=== PATIENT | male | born 1940 | race Caucasian/White ===

== ENCOUNTER 2022-12-10 14:51 | Inpatient (IN) | payer OTHER, MEDICAID ==
[~2022-12-10] VITALS: Ht 154.9 cm; Wt 49.9 kg
--- NOTE | 2022-12-10 14:51 | NUR ---
PT PLACED IN BED 10 BY [facility]
[2022-12-10 14:58] VITALS: BP 114/76
[2022-12-10] MEDS ORDERED: NACL 0.9% 1,000 ML IV ONE (15:00)
[2022-12-10] MEDS ORDERED: VANCOMYCIN 1,000 MG in DEXTROSE 5% 250 ML IV ONE (15:05)
[2022-12-10] MEDS ORDERED: MEROPENEM 1,000 MG in NACL 0.9% 50 ML IV ONE (15:05)
[2022-12-10] MEDS ORDERED: MEROPENEM 1,000 MG VIAL IV ONE (15:08)
[2022-12-10] MEDS ORDERED: VANCOMYCIN 1,000 MG VIAL ONE (16:39)
[2022-12-10 16:47] LABS: BASOPHILS % (AUTO) 0.3 % (0.0-2.0); EOSINOPHILS # (AUTO) 0.1 K/uL (0-0.4); EOSINOPHILS % (AUTO) 1.8 % (0.0-4.0); HEMATOCRIT 24.7 % (36-52); HEMOGLOBIN 7.7 g/dL (12.0-18.0); LYMPHOCYTES # (AUTO) 0.7 K/uL (2.0-11.5); LYMPHOCYTES % (AUTO) 11.2 % (20.5-51.1); MEAN CORPUSCULAR HEMOGLOBIN 28 pg (27-31); MEAN CORPUSCULAR HGB CONC 31 g/dL (33-37); MEAN CORPUSCULAR VOLUME 88.7 fL (80-94); MONOCYTES # (AUTO) 0.7 K/uL (0.8-1.0); NEUTROPHILS # (AUTO) 4.7 K/uL (1.8-7.7); NEUTROPHILS % (AUTO) 75.7 % (42.2-75.2); PLATELET COUNT (AUTO) 111 K/uL (140-450); RED BLOOD CELL COUNT(AUTO) 2.79 MIL/uL (4.20-6.10); RED CELL DISTRIBUTION WIDTH 16.2 % (11.6-13.7); WHITE BLOOD COUNT (AUTO) 6.2 K/uL (4.8-10.8)
[2022-12-10 17:02] LABS: ALBUMIN 3.1 g/dL (3.4-5.0); ANION GAP 3.6 (8-16); ASPARTATE AMINOTRANSFERASE 34 U/L (15-37); CHLORIDE 106 mmol/L (98-107); CREATININE 0.9 mg/dL (0.6-1.3); GLUCOSE 115 mg/dL (74-106); POTASSIUM 4.6 mmol/L (3.5-5.1); SODIUM SERUM 144 mmol/L (136-145); TOTAL BILIRUBIN 0.3 mg/dL (0.0-1.0); UREA NITROGEN, BLOOD 16 mg/dL (7-18)
[2022-12-10 17:17] LABS: PROTHROMBIN TIME 10.8 secs (10.8-13.4)
[2022-12-10] MEDS ORDERED: ACETAMINOPHEN 325 MG TAB PO PRN (18:35)
[2022-12-10] MEDS ORDERED: methylPREDNISolone SS 125 MG in WATER STERILE 2 ML IM ONE (18:35)
[2022-12-10] MEDS ORDERED: DOCUSATE SODIUM 100 MG GELCAP PO PRN (18:35)
[2022-12-10] MEDS ORDERED: MORPHINE SULFATE 2 MG/ML SYR IVP PRN (18:35)
[2022-12-10] MEDS ORDERED: MAG SULF 2000 MG/WATER PREMIX 50 ML IV PRN (18:35)
[2022-12-10] MEDS ORDERED: MAG SULF 2000 MG/WATER PREMIX 50 ML IV ONE (18:35)
[2022-12-10] MEDS ORDERED: POTASSIUM CHLORIDE 10 MEQ TABER PO PRN (18:35)
[2022-12-10] MEDS ORDERED: LORazepam 2 MG/ML VIAL IVP PRN (18:35)
[2022-12-10] MEDS ORDERED: ONDANSETRON 4 MG/2 ML VIAL IVP PRN (18:35)
[2022-12-10] MEDS ORDERED: methylPREDNISolone SS 125 MG/2 ML VIAL ONE (19:03)
[2022-12-10] MEDS ORDERED: WATER STERILE 10 ML MC ONE (19:03)
[2022-12-10 19:07] VITALS: BP 98/59
--- NOTE | 2022-12-10 19:07 | NUR ---
INCREASED PT IPAP FROM 10 TO 14 AND EPAP FROM 5 TO 6 DUE TO LOW VOLUMES. PT VOLUMES HAVE IMPROVED AND PT HAS ADEQUATE CHEST RISE. WILL CONTINUE TO MONITOR.
--- NOTE | 2022-12-10 19:30 | NUR ---
RECEIVED IN BED 10 ON BIPAP, NON VERBAL. MAG RIDER COMPLETED. PT DOES RESPOND TO TACTILE STIMULATION. REPOSITIONED SLIGHTLY FOR COMFORT, WARM BLANKET GIVEN
--- NOTE | 2022-12-10 20:32 | NUR ---
DR SALAZAR HERE REXAMINING PT
[2022-12-10] MEDS ORDERED: FINA5TAB1 PO (20:51)
[2022-12-10] MEDS ORDERED: ATOR40TA PO (20:51)
[2022-12-10] MEDS ORDERED: ATI.5 PO (20:51)
[2022-12-10] MEDS ORDERED: MIRT-91 PO (20:51)
[2022-12-10] MEDS ORDERED: KEP500 PO (20:51)
[2022-12-10] MEDS ORDERED: methylPREDNISolone SS 40 MG in WATER STERILE 1 ML IV SCH (21:00)
[2022-12-10] MEDS ORDERED: methylPREDNISolone SS 40 MG/ML VIAL IVP SCH (21:00)
--- NOTE | 2022-12-10 21:57 | NUR ---
REPORT CALLED TO ANTIONE MALAVE. PT IS IN CT RIGHT NOW AND WILL BE TRANSPORTED TO 110B IMMEDIATELY FOLLOWING SCAN
--- NOTE | 2022-12-10 22:00 | NUR ---
RT ASSISTED WITH TRANSPORTING PT FROM ER, TO CT, AND BACK TO ER. NO DISTRESS NOTED, SPO2 IS 100%, BIPAP MACHINE PLUGGED INTO RED OUTLET.
--- NOTE | 2022-12-10 22:50 | NUR ---
RT ASSISTED WITH TRANSPORTING PT FROM ER TO ROOM 110B. NO DISTRESS INDICATED PT SPO2 97%, BIPAP PLUGGED INTO RED OUTLET, AMBU BAG BEDSIDE.
--- NOTE | 2022-12-10 22:55 | NUR ---
PATIENT WAS [facility] FROM ER VIA GURNEY WITH BIPAP ON. CC: ALOC DX: PNA. BREATHING NORMAL WITH SYMMETRICAL RISE AND FALL OF THE CHEST. IV ACCESS TO LEFT FOREARM 22 GAUGE INTACT AND PATENT. ALL SAFETY PRECAUTIONS ARE IN PLACE. SKIN WARM AND DRY TO THE TOUCH. SKIN INTACT. MRSA SCREENING DONE. CALL LIGHT ON EASY REACH.
[2022-12-10 23:20] VITALS: BP 101/53
[2022-12-10] MEDS ORDERED: PIPERACILLIN/TAZOBACTAM 3.375 GM VIAL IV ONE (23:34)
[2022-12-10] MEDS: PIPERACILLIN/TAZOBACTAM 3.375 GM in DEXTROSE 5% 50 ML IV SCH (23:50)
[2022-12-11] VITALS (8 sets, daily range): BP systolic 101–143; BP diastolic 58–80
[2022-12-11] MEDS ORDERED: methylPREDNISolone SS 40 MG in WATER STERILE 1 ML IV SCH ×2
[2022-12-11] MEDS: methylPREDNISolone SS 40 MG/ML VIAL IVP SCH ×3 (00:13→16:00)
[2022-12-11 04:53] LABS: APPEARANCE,URINE CLEAR (CLEAR); BILIRUBIN,URINE NEGATIVE (NEGATIVE); BLOOD, URINE 3+ (NEGATIVE); COLOR,URINE YELLOW (YELLOW); LEUKOCYTE ESTERASE ,URINE NEGATIVE (NEGATIVE); NITRITE, URINE NEGATIVE (NEGATIVE); PH,URINE 6.5 (5.0-9.0); UGLUCOSE NEGATIVE (NEGATIVE)
[2022-12-11] MEDS ORDERED: PIPERACILLIN/TAZOBACTAM 3.375 GM VIAL IV ONE (05:06)
[2022-12-11] MEDS: PIPERACILLIN/TAZOBACTAM 3.375 GM in DEXTROSE 5% 50 ML IV SCH ×3 (05:12→20:54)
--- NOTE | 2022-12-11 05:12 | NUR ---
ZOSYN ADMINISTERED ORDERED.
[2022-12-11 05:13] LABS: RBC,URINE 80-100 /HPF (0-5)
--- NOTE | 2022-12-11 07:30 | NUR ---
ENDORSED TO DAY SHIFT NURSE FOR CONTINUITY OF CARE. PATIENT ON BIPAP.
[2022-12-11] MEDS: FINASTERIDE 5 MG TAB PO SCH (09:00)
[2022-12-11] MEDS ORDERED: levETIRAcetam 500 MG TAB PO SCH (09:00)
--- NOTE | 2022-12-11 13:10 | NUR ---
PT PLACED ON 3LNC SATING 94% HR 68 NO DISTRESS NOTED. PT WAS PLACED ON NC DUE TO NOT KEEPING BIPAP ON AND CONTINUING TO TAKE IT OFF. WILL CONTINUE TO MONITOR.
--- NOTE | 2022-12-11 14:00 | NUR ---
HELP BREATHING TX DUE TO ELEVATED HR RN AND CHARGE AWARE MONITORING PT CLOSELY.
[2022-12-11 14:03] LABS: MONOCYTES # (AUTO) 0.1 K/uL (0.8-1.0); NEUTROPHILS # (AUTO) 1.4 K/uL (1.8-7.7)
[2022-12-11 14:10] LABS: ANION GAP 8.6 (8-16); BASOPHILS % (AUTO) 0.1 % (0.0-2.0); CARBON DIOXIDE 38.1 mmol/L (21-32); CHLORIDE 106 mmol/L (98-107); CREATININE 0.9 mg/dL (0.6-1.3); EOSINOPHILS % (AUTO) 0.1 % (0.0-4.0); GLUCOSE 124 mg/dL (74-106); HEMATOCRIT 25.1 % (36-52); LYMPHOCYTES # (AUTO) 0.4 K/uL (2.0-11.5); LYMPHOCYTES % (AUTO) 22.5 % (20.5-51.1); MEAN CORPUSCULAR HEMOGLOBIN 28 pg (27-31); MEAN CORPUSCULAR HGB CONC 32 g/dL (33-37); MEAN CORPUSCULAR VOLUME 87.4 fL (80-94); MONOCYTES % (AUTO) 7.2 % (1.7-9.3); NEUTROPHILS % (AUTO) 70.1 % (42.2-75.2); PLATELET COUNT (AUTO) 117 K/uL (140-450); POTASSIUM 4.7 mmol/L (3.5-5.1); RED BLOOD CELL COUNT(AUTO) 2.87 MIL/uL (4.20-6.10); RED CELL DISTRIBUTION WIDTH 16.1 % (11.6-13.7); SODIUM SERUM 148 mmol/L (136-145); UREA NITROGEN, BLOOD 18 mg/dL (7-18)
--- NOTE | 2022-12-11 15:10 | NUR ---
RN CALLED STATED PT WAS DESATING IN THE HIGH 70S AND NEEDED RT STAT. RT ASSESSED PT HR ON PULSE OX WAS READING 35 AND SPO2 805 ON 5L NC. @ 1517 A RAPID RESPONSE CALLED. NRM WAS PLACED ON PT TO INCREASE SATURATIONS. PTS SATS INCREASED BUT WOB WAS INCREASED WITH LABORED BREATHING. RN STATED ATIVAN WAS GIVEN ABOUT A HOUR PRIOR. ER NURSE AND HOUSE SUP STATED COULD BE CAUSE DECREASE OF RESP DRIVE. PT SATURATIONS CAME UP TO 89% AND HR WITHIN NORMAL LIMITS. PT MEDS WERE SWITCHED PER DR AND PT IS NOW TOLERATING HFNC 15 24%. PT WOB DECREASED AND THERE IS NO DISTRESS AT THIS TIME OF 1608. WILL CONTINUE TO MONITOR.
[2022-12-11] MEDS: levETIRAcetam 500 MG in NACL 0.9% 100 ML IV SCH (15:56)
--- NOTE | 2022-12-11 19:50 | NUR ---
RECEIVED PATIENT WITH BILATERAL SOFT WRIST RESTRAINTS. BEDBOUND. ON HIGH FLOW AT 15L. NO S/S OF RESPIRATORY DISTRESS. RESPIRATION EVEN UNLABORED. ALL SAFETY MEASURES ARE IN PLACE. BED WHEELS LOCKED. SKIN WARM DRY TO THE TOUCH. CALL LIGHT WITHIN REACH. WILL CONTINUE TO MONITOR PT.
--- NOTE | 2022-12-11 19:53 | NUR ---
0800: RECEIVED PT FROM ANANDA TALBOT. PT RESTING IN BED EYES CLOSED. NO GUARDING OR GRIMACING. NO ACUTE DISTRESS NOTED AT THIS TIME. [id number].
--- NOTE | 2022-12-11 19:54 | NUR ---
1950: REPORTED OFF TO ANANDA TALBOT. PT RESTING IN BED. NO GUARDING OR GRIMACING . NO ACUTE DISTRESS NOTED AT THIS TIME. [id number].
[2022-12-11] MEDS: ATORVASTATIN 20 MG TAB PO SCH (20:54)
[2022-12-11] MEDS: ZOLPIDEM 10 MG TAB PO PRN (20:54)
--- NOTE | 2022-12-11 20:54 | NUR ---
ADMINISTERED SCHEDULED DUE MEDICATIONS. TOLERATED WELL.
[2022-12-12] VITALS (8 sets, daily range): BP systolic 119–141; BP diastolic 62–93
[2022-12-12] MEDS: levETIRAcetam 500 MG in NACL 0.9% 100 ML IV SCH ×2 (02:11→15:29)
[2022-12-12] MEDS: PIPERACILLIN/TAZOBACTAM 3.375 GM in DEXTROSE 5% 50 ML IV SCH ×3 (04:32→20:55)
--- NOTE | 2022-12-12 06:43 | NUR ---
PATIENT HAD EPISODES OF PULLING OUT HIS O2. PUT BACK IN. REMINDED PATIENT NOT TO PULL IT OUT. PATIENT IS CONFUSED
--- NOTE | 2022-12-12 06:50 | NUR ---
WILL ENDORSE PATIENT TO AM SHIFT FOR CONTINUITY OF CARE.
--- NOTE | 2022-12-12 07:06 | NUR ---
receive the patinet from the senior cobol developer rn in rm 110B aox1 with bilateral wrist restraints . with admitting diagnosis of pneumonia . will continue to monitor
--- NOTE | 2022-12-12 07:35 | NUR ---
RECEIVED ON A VAPOTHERM HIGH FLOW NASAL CANNULA WITH COMPRESSOR ON PLUGGED INTO RED OUTLET TOLERATING WELL WITHOUT ADVERSE REACTIONS NOTED ; HHN PRN THERAPY GIVEN NOTED; POST HHN THERAPY TITRATED FIO2 TO 35% LIFT ELECTRICIAN TO MONITOR; JORDAN/RN NOTIFIED
[2022-12-12] MEDS: ALBUTEROL 0.083% 2.5 MG/3 ML NEBU INH PRN ×2 (07:38→15:44)
--- NOTE | 2022-12-12 08:05 | NUR ---
SATURATION 99% ON FIO2 OF 35% VIA VAPOTHERM HIH FLOW NASAL CANNULA; TITRATED FIO2 TO 30% PROFESSOR OF SPECIAL EDUCATION TO MONITOR; JORDAN/'RN NOTIFIED
--- NOTE | 2022-12-12 08:50 | NUR ---
SATURATION 99% ON FIO2 OF 30% VIA VAPOTHERM HIGH FLOW NASAL CANNULA; PROJECT PORTFOLIO ANALYST TO TITRATE FIO2 TOLERATED; JORDAN/ANTIONE NOTIFIED Addendum: 12/12/22 at 0954 by Kiran Sow RT TITRATED FIO2 TO 28%
--- NOTE | 2022-12-12 09:02 | NUR ---
SATURATION 99% ON FIO2 OF 28% VIA VAPOTHERM HIGH FLOW NASAL CANNULA; CHANGED OXYGEN DEVICE TO A NASAL CANNULA AT 2 LPM; JORDAN/RN NOTIFIED
[2022-12-12] MEDS: methylPREDNISolone SS 40 MG/ML VIAL IVP SCH ×3 (09:16→15:36)
[2022-12-12] MEDS: FINASTERIDE 5 MG TAB PO SCH (09:16)
--- NOTE | 2022-12-12 09:25 | NUR ---
PATIENT HAS BEEN SCREENED AND CATEGORIZED HIGH NUTRITION RISK. PATIENT WILL BE SEEN WITHIN 1-2 DAYS OF ADMISSION. 12/10/22-12/12/22 JERRELL ROBERTSONS NUTRITION CONSULT RECEIVED FOR MALNUTRITION
[2022-12-12] MEDS ORDERED: FUROSEMIDE 40 MG/4 ML VIAL IVP SCH (10:03)
[2022-12-12 10:06] LABS: BASOPHILS % (AUTO) 0.2 % (0.0-2.0); HEMATOCRIT 26.6 % (36-52); HEMOGLOBIN 8.5 g/dL (12.0-18.0); LYMPHOCYTES # (AUTO) 0.3 K/uL (2.0-11.5); LYMPHOCYTES % (AUTO) 11.2 % (20.5-51.1); MEAN CORPUSCULAR HEMOGLOBIN 28 pg (27-31); MEAN CORPUSCULAR HGB CONC 32 g/dL (33-37); MEAN CORPUSCULAR VOLUME 87.4 fL (80-94); MONOCYTES # (AUTO) 0.3 K/uL (0.8-1.0); MONOCYTES % (AUTO) 9.3 % (1.7-9.3); NEUTROPHILS # (AUTO) 2.4 K/uL (1.8-7.7); NEUTROPHILS % (AUTO) 79.3 % (42.2-75.2); PLATELET COUNT (AUTO) 141 K/uL (140-450); RED BLOOD CELL COUNT(AUTO) 3.04 MIL/uL (4.20-6.10); RED CELL DISTRIBUTION WIDTH 15.6 % (11.6-13.7); WHITE BLOOD COUNT (AUTO) 3.1 K/uL (4.8-10.8)
[2022-12-12 10:11] LABS: ANION GAP 7.4 (8-16); CARBON DIOXIDE 38.4 mmol/L (21-32); CHLORIDE 107 mmol/L (98-107); GLUCOSE 111 mg/dL (74-106); POTASSIUM 3.8 mmol/L (3.5-5.1); SODIUM SERUM 149 mmol/L (136-145); UREA NITROGEN, BLOOD 23 mg/dL (7-18)
[2022-12-12] MEDS ORDERED: HALOPERIDOL IM 5 MG/ML VIAL IVP PRN (10:25)
--- NOTE | 2022-12-12 10:30 | NUR ---
inserted a 20gauge intravenous catheter on patient left upper arm in preparation for angiogram .
[2022-12-12] MEDS ORDERED: HALOPERIDOL IM 5 MG/ML VIAL IM PRN (10:45)
[2022-12-12] MEDS ORDERED: HALOPERIDOL IM 5 MG/ML VIAL IM SCH (11:10)
--- NOTE | 2022-12-12 11:16 | NUR ---
CALLED DR. STUART RODRIGUEZ AT [facility] [phone] FOR CLARIFICATION OF BIPAP TO MASK VERBAL ORDER TO ADOLFO.FIRE PREVENTION INSPECTOR JACQUELYN; CHIN/EXCHANGE TO EMILY LANDEROS MD; PATIENT INFORMATION AND CALL BACK NUMBER GIVEN
--- NOTE | 2022-12-12 11:22 | NUR ---
CALL BACK FROM DR. STUART RODRIGUEZ REVIEWED V.O. NOTED AT 1116; TORBO DR. RODRIGUEZ ACQUIRE BASELINE SpRR ON AND OFF BIPAP TO MASK; REMOVE FROM NASAL CANNULA AT [address] ON BIPAP TO MASK; IF BASELINE SpRR MEASURES WITH SIMILARITY THEN REMOVE FROM BIPAP TO MASK AND PLACE BACK ON O2 VIA NASAL CANNULA
--- NOTE | 2022-12-12 11:30 | NUR ---
administer haldol IM in preparation for angioram . will continue to monitor for agitation.
--- NOTE | 2022-12-12 11:46 | NUR ---
ADMITTING DX: PNEUMONIA; PMHX: SCOLIOSIS COPD DEMENTIA; LOC AWAKE CONFUSED SLIGHTLY AGITATED; SATURATION 98% ON 2LPM VIA NC; SpRR 36
--- NOTE | 2022-12-12 11:55 | NUR ---
PLACED ON BIPAP TO MASK NOTED AT 1122 FROM 1155 TO 1210; PER JOHN RODRIGUEZ
--- NOTE | 2022-12-12 12:10 | NUR ---
SpRR ON BIPAP TO MASK 28 TO 35 BPM; SpRR CONSISTENT ON AND OFF BIPAP; PLACED ON 2 LPM VIA NC
--- NOTE | 2022-12-12 17:22 | NUR ---
12/12/22 RD INITIAL ASSESSMENT COMPLETED.PLEASE REFER TO NUTRITION ASSESSMENT UNDER CARE ACTIVITY FOR ESTIMATED NUTRITIONAL NEEDS. 1. CONTINUE MECHANICAL SOFT DIET TOLERATED 2. RECOMMEND ENSURE 2X/DAY TO OPTIMIZE NUTRITIONAL NEEDS. -IF PT CANNOT TOLERATE PO INTAKE AND WHEN/IF MEDICALLY APPROPRIATE TO INITIATE TUBE FEEDING, RECOMMEND VITAL AF 1.2 PAUL WITH A GOAL RATE OF 45 ML/HR, STARTING @ 10 ML/HR AND INCREASING BY 10 ML Q4H PT TOLERATES. -FWF 100 ML Q8H OR PER MD THIS WILL PROVIDE 1080 ML VOLUME, 1296 KCAL, 81 GRAMS OF PROTEIN, AND 1176 ML FREE WATER, MEETING 100% OF ESTIMATED ENERGY NEEDS; ADEQUATE. 3. MONITOR PO INTAKE 4. RD TO FOLLOW-UP 2-3 DAYS, HIGH RISK CONNIE MARISCAL RD
--- NOTE | 2022-12-12 17:37 | NUR ---
inform md Wallace that we failed to do the angiogram due to agitation and the patient has scoliosis ,the patient can not lay flat . md order venous doppler of the lower extremities
--- NOTE | 2022-12-12 18:38 | NUR ---
will endorse to weight shifter rn for continuity of care . possible quiton catheter placement depending on laboratory results Addendum: 12/12/22 at 1847 by Agency Nurse Bret, ANTIONE RN wrong patient
--- NOTE | 2022-12-12 18:47 | NUR ---
will endorse to shift supervisor rn rn for continuity of care . for venous doppler ultra sound of bilateral lower extremities .
--- NOTE | 2022-12-12 20:10 | NUR ---
PATIENT LYING IN BED ON 2L O2 VIA NC SATING 98%. NO SOB NOTED. NO S/S OF PAIN. BED WHEELS LOCKED IN LOWEST POSITION. WITH BILATERAL SOFT WRIST RESTRAINTS FOR PATIENT SAFETY. WILL CONTINUE TO MONITOR.
[2022-12-12] MEDS: ATORVASTATIN 20 MG TAB PO SCH (21:09)
[2022-12-12] MEDS: ZOLPIDEM 10 MG TAB PO PRN (21:09)
--- NOTE | 2022-12-12 21:09 | NUR ---
DUE MEDS GIVEN ORDERED.
[2022-12-13] VITALS: BP 111/54
[2022-12-13] MEDS: levETIRAcetam 500 MG in NACL 0.9% 100 ML IV SCH ×2 (02:34→15:48)
[2022-12-13 04:00] VITALS: BP 137/78
[2022-12-13] MEDS: PIPERACILLIN/TAZOBACTAM 3.375 GM in DEXTROSE 5% 50 ML IV SCH ×3 (05:41→20:31)
--- NOTE | 2022-12-13 07:01 | NUR ---
receive the patinet from the fast food shift lead rn in 110B aox2 with admitting diagnosis of pneumonia . with 2L by nasal canula . to provide solumedrol to prevent inflammation . on antibiotics therapy .
--- NOTE | 2022-12-13 07:15 | NUR ---
GRACIELA REPORT TO CATRACHO TALBOT FOR CONTINUITY OF CARE.
[2022-12-13 08:00] VITALS: BP 150/87
[2022-12-13] MEDS: ALBUTEROL 0.083% 2.5 MG/3 ML NEBU INH PRN ×2 (08:10→20:50)
[2022-12-13] MEDS: FINASTERIDE 5 MG TAB PO SCH (08:41)
[2022-12-13] MEDS: methylPREDNISolone SS 40 MG/ML VIAL IVP SCH ×3 (08:42→15:58)
--- NOTE | 2022-12-13 11:21 | NUR ---
DC [age] YRS OLD MALE PATIENT WAS ADMITTED FROM [facility] WITH A DX OF PNEUMONIA. PATIENT HAS A HX OF HTN, BPH, DEMENTIA,EPILEPSY,HLD AND COPD. CXR SHOWED CARDIOMEGALY RAPID COVID TEST NEGATIVE. CT HEAD NEGATIVE. ADMINISTERED SOLU-MEDROL IV, AND IV ABX ZOSYN. CONSULTED WITH PULMO. DC PLAN TO RETURN TO [facility]. CM TO FOLLOW
--- NOTE | 2022-12-13 11:31 | NUR ---
PT. WITH LOW ROBBIE SCALE AT MODERATE TO HIGH RISK, CONTINUE TO FOLLOW PRESSURE INJURY PREVENTION INTERVENTIONS. -POSITIONING: TURN AND REPOSITION PATIENT Q 2H OR SOONER USE PILLOWS TO KEEP BONY PROMINENCES FROM DIRECT CONTACT WITH SURFACES USE REPOSITIONING WEDGES TO PROVIDE 30-DEGREE ANGLE FOR SIDE LYING POSITIONS OFFLOADING OR FOAM DRESSING TO ALL TUBING TO PREVENT MEDICAL DEVICES RELATED PRESSURE INJURY -RE-EVALUATING AND MANAGING INCONTINENCE MONITOR SKIN CONDITION DURING POSITION CHANGE DO NOT MASSAGE REDNESS, BONY PROMINENCES FREQUENT JULIA-CARE AND PROVIDE BARRIER CREAMS PRN IF SOILING MOISTURE CONTROL BY OFFER BED TALLEY/URINAL /ABSORBENT PAD TO WICK AND HOLD MOISTURE KEEP SKIN DRY AND PROTECT FROM FRICTION -MANAGE FRICTION/SHEAR/MOBILITY KEEP HOB AT THE LOWEST LEVEL OF ELEVATION NO MORE THAN 30 DEGREE UNLESS OTHERWISE CONTRAINDICATED USE LIFT SHEET OR TRANSFER DEVICE TO MOVE PATIENT AND PREVENT LATERAL SHEER. PROTECT HEELS, ELBOWS BONY PROMINENCES WITH SKIN BERRIES OR FOAM DRESSING IF EXPOSED TO FRICTION OFFLOAD BILATERAL HEELS BY PLACING PILLOWS UNDER CALVES AT ALL TIMES, UNLESS OTHERWISE CONTRAINDICATED -PRESSURE REDISTRIBUTION SURFACE THERAPY MACIEL ISOFLEX MATTRESS -NUTRITION: PLEASE FOLLOW RD RECOMMENDATIONS AND OFFER NUTRITION SUPPLEMENTS IF ORDERED. PLEASE CONTACT WOUND CARE NURSE FOR ANY QUESTION AND CHANGE OF WOUND CONDITION.
[2022-12-13 12:00] VITALS: BP 153/81
[2022-12-13 12:05] LABS: BASOPHILS % (AUTO) 0.1 % (0.0-2.0); HEMATOCRIT 26.9 % (36-52); HEMOGLOBIN 8.5 g/dL (12.0-18.0); LYMPHOCYTES # (AUTO) 0.4 K/uL (2.0-11.5); LYMPHOCYTES % (AUTO) 6.4 % (20.5-51.1); MEAN CORPUSCULAR HEMOGLOBIN 28 pg (27-31); MEAN CORPUSCULAR HGB CONC 31 g/dL (33-37); MEAN CORPUSCULAR VOLUME 87.7 fL (80-94); MONOCYTES # (AUTO) 0.6 K/uL (0.8-1.0); MONOCYTES % (AUTO) 9.6 % (1.7-9.3); NEUTROPHILS # (AUTO) 5.5 K/uL (1.8-7.7); NEUTROPHILS % (AUTO) 83.9 % (42.2-75.2); PLATELET COUNT (AUTO) 151 K/uL (140-450); RED BLOOD CELL COUNT(AUTO) 3.07 MIL/uL (4.20-6.10); WHITE BLOOD COUNT (AUTO) 6.6 K/uL (4.8-10.8)
[2022-12-13 12:26] LABS: ANION GAP 11.7 (8-16); CARBON DIOXIDE 35.8 mmol/L (21-32); CHLORIDE 107 mmol/L (98-107); GLUCOSE 126 mg/dL (74-106); POTASSIUM 3.5 mmol/L (3.5-5.1); SODIUM SERUM 151 mmol/L (136-145); UREA NITROGEN, BLOOD 26 mg/dL (7-18)
[2022-12-13 12:29] LABS: MAGNESIUM 2.3 mg/dL (1.8-2.4); PHOSPHORUS 4.2 mg/dL (2.5-4.9)
[2022-12-13 16:00] VITALS: BP 138/78
--- NOTE | 2022-12-13 17:23 | NUR ---
flora [phone] georgiana requested for zoom call before they decide on Md vang recommendation for hospice care
--- NOTE | 2022-12-13 18:55 | NUR ---
will endorse to plant operator/shift supervisor rn for continuity of care . will follow up with Effie stoner about the decision for the patient to be on hospice discharge to senior living facility
--- NOTE | 2022-12-13 19:25 | NUR ---
RECEIVED REPORT FROM AM SHIFT NURSE. PATIENT SLEEPING ON 6L O2 VIA NC. NO ACUTE DISTRESS NOTED CALL LIGHT ON EASY REACH. ALL SAFETY PRECAUTIONS ARE IN PLACE. WILL CONTINUE TO MONITOR PT.
[2022-12-13 20:00] VITALS: BP 134/68
[2022-12-13] MEDS: ATORVASTATIN 20 MG TAB PO SCH (20:30)
--- NOTE | 2022-12-13 20:31 | NUR ---
DUE MEDS GIVEN ORDERED.
--- NOTE | 2022-12-13 21:10 | NUR ---
2049 FOUND PATIENT ON 6L NASAL CANNULA. PT SATS 100%. LOWERED FIO2 TO 3LNC AND ADDED WATER BUBBLE HUMIDIFICATION. ALSO GAVE HHNTX
[2022-12-14] VITALS: BP 122/67
[2022-12-14] MEDS: ALBUTEROL 0.083% 2.5 MG/3 ML NEBU INH PRN (01:52)
--- NOTE | 2022-12-14 02:18 | NUR ---
PATIENT IV SITE IS LEAKING. STARTED A NEW IV TO THE RIGHT FOREARM WITH GOOD RETURN OF BLOOD. TOLERATED WELL.
[2022-12-14] MEDS: levETIRAcetam 500 MG in NACL 0.9% 100 ML IV SCH (02:25)
[2022-12-14 04:04] VITALS: BP 117/69
[2022-12-14] MEDS: PIPERACILLIN/TAZOBACTAM 3.375 GM in DEXTROSE 5% 50 ML IV SCH ×2 (04:39→13:56)
[2022-12-14 07:11] LABS: BASOPHILS % (AUTO) 0.1 % (0.0-2.0); HEMATOCRIT 24.8 % (36-52); HEMOGLOBIN 7.9 g/dL (12.0-18.0); LYMPHOCYTES # (AUTO) 0.4 K/uL (2.0-11.5); LYMPHOCYTES % (AUTO) 5.6 % (20.5-51.1); MEAN CORPUSCULAR HEMOGLOBIN 28 pg (27-31); MEAN CORPUSCULAR HGB CONC 32 g/dL (33-37); MEAN CORPUSCULAR VOLUME 87.2 fL (80-94); NEUTROPHILS # (AUTO) 6.4 K/uL (1.8-7.7); NEUTROPHILS % (AUTO) 81.3 % (42.2-75.2); PLATELET COUNT (AUTO) 137 K/uL (140-450); RED BLOOD CELL COUNT(AUTO) 2.85 MIL/uL (4.20-6.10); RED CELL DISTRIBUTION WIDTH 16.3 % (11.6-13.7); WHITE BLOOD COUNT (AUTO) 7.9 K/uL (4.8-10.8)
--- NOTE | 2022-12-14 07:17 | NUR ---
WILL ENDORSE PATIENT TO DAY SHIFT NURSE FOR CONTINUITY OF CARE.
[2022-12-14 07:19] LABS: ANION GAP 8.5 (8-16); CARBON DIOXIDE 37.4 mmol/L (21-32); CHLORIDE 108 mmol/L (98-107); CREATININE 0.9 mg/dL (0.6-1.3); GLUCOSE 126 mg/dL (74-106); POTASSIUM 3.9 mmol/L (3.5-5.1); SODIUM SERUM 150 mmol/L (136-145); UREA NITROGEN, BLOOD 28 mg/dL (7-18)
--- NOTE | 2022-12-14 09:30 | NUR ---
receive the patinet in rm 110B aox1 with admitting diagnosis of pneumonia . for possible discharge today . will continue to monitor
[2022-12-14] MEDS: methylPREDNISolone SS 40 MG/ML VIAL IVP SCH ×2 (09:45)
[2022-12-14] MEDS: FINASTERIDE 5 MG TAB PO SCH (09:45)
--- NOTE | 2022-12-14 12:15 | NUR ---
RECEIVED ORDER FOR PATIENT TO GO BACK TO SNF. FAXED TO [facility]. GOT A CALL FRO TIANNA AT [facility] LOCATED AT [address] [address]. PATIENT WAS ACCEPTED BACK GOING TO ROOM 27-B UNDER DR CAMACHO. TRANSPORTATION SET UP WITH RAE AT [facility] FOR A GURNEY TRANSPORT WITH 3L OF O2, WITH A 1600 PINBALL MACHINE REPAIRER TIME. CHARGE NURSE JULIO AND BROTHER TONYA AWARE OF THE ABOVE INFORMATION Addendum: 12/14/22 at 1307 by JULIETH LUGO CM [facility] REFERENCE #[id number]
[2022-12-14] MEDS ORDERED: AZIT250T4 PO (13:26)
--- NOTE | 2022-12-14 14:54 | NUR ---
DC PLANNING ASSESSMENT COMPLETE PLEASE REFER TO ASSESSMENT FOR ADDITIONAL DETAILS PER NOTES PT IS ANOX1, THEREFORE COLLAT INFO GATHERED FROM ARUNA, PETE AND CONFIRMED BY PTS AURELIO BOYCE PT IS AN 82 YR OLD MALE ADMITTED TO [facility] FROM [facility] WITH D OF PNA. PT HAS PAST MEDICAL HX OF HYPERTENSION, DEMENTIA, EPILEPSY, HYPERLIPIDEMIA, BPH & COPD. PT IS REPORTED TO HAVE ACTIVE FAMILY INVOLVEMENT HOWEVER, FAMILY IS REPORTED TO BE OUT OF STATE AND ARE NOT LOCAL. AUSTEN REPORTS SHE AND PTS BROTHER TONYA ORTIZ ARE PATIENTS MDM. [place]EN UNSURE IF PT HAS POA. FAMILY IS REPORTED TO BE CONSIDERING HOSPICE CARE FOR PT. PT IS REPORTED TO BE WHEELCHAIR BOUND AND IS TOTAL CARE AT FACILITY. PT IN LONG-TERM CARE WITH [facility], ADMISSION DATE 07/17/22 FAMILY HAS SPOKEN TO ATTENDING PHYSICIAN ABOUT HOSPICE. FAMILY CONSIDERING HOSPICE. SHIRLEY REPORT TENTATIVE DC PLAN IS FOR PT TO RETURN TO [facility], ONCE MEDICALLY STABLE. Addendum: 12/14/22 at 1455 by Frederick VAZQUEZ Amended: Links added.
--- NOTE | 2022-12-14 15:46 | NUR ---
gave report to Ivonne of [facility].
--- NOTE | 2022-12-14 16:46 | NUR ---
pt was discharge to [facility] . sheepskin pickler by EMT . in a stable condition . no complain of pain . no sign and symptoms of respiratory distress .
== END 2022-12-14 12:30 | DRG 189 ==
LOC: MED 14:51 → MTU 18:33
PROVIDERS: ADMIT Family Medicine; ATTEND Family Medicine
PROC: 5A09357 Assistance with Respiratory Ventilation, Less than 24 Consecutive Hours, Continuous Positive Airway Pressure (ICD-10-PCS; principal; 2022-12-10)
DX: J96.02 Acute respiratory failure with hypercapnia (principal); E43 Unspecified severe protein-calorie malnutrition; G93.41 Metabolic encephalopathy; J44.1 Chronic obstructive pulmonary disease with (acute) exacerbation; G40.909 Epilepsy, unspecified, not intractable, without status epilepticus; F03.90 Unspecified dementia, unspecified severity, without behavioral disturbance, psychotic disturbance, mood disturbance, and anxiety; I10 Essential (primary) hypertension; E78.5 Hyperlipidemia, unspecified; E83.51 Hypocalcemia; D69.6 Thrombocytopenia, unspecified; D64.9 Anemia, unspecified; Z20.822 Contact with and (suspected) exposure to COVID-19; Z88.6 Allergy status to analgesic agent; Z79.899 Other long term (current) drug therapy; Z68.20 Body mass index [BMI] 20.0-20.9, adult
CPT/HCPCS: 36415; 36600; 70450; 71045; 80048; 80053; 81001; 82272; 82803; 83605; 83735; 84100; 85025; 85610; 85730; 87040; 87081; 87086; 93970; 94640; 94660; 96374; 96375; 97112; 97163-GP; 97530; 99285; J1630; J1940; J1953; J2060; J2185; J2543; J2920; J2930; J3370; J3475; J7060; J7613; Q0092